=== PATIENT | male | born 2000 | race Caucasian/White ===

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

== ENCOUNTER 2019-02-07 17:32 | Emergency (ER) | payer OTHER ==
[~2019-02-07] VITALS: Ht 185.4 cm; Wt 68.0 kg
[~2019-02-07 17:32] MED LIST changes: +ALLEGRA-D 24 H1 EACH PO; +FLONASE ALLERG9.9 ML NAS; +PROAIR HFA8.5 GM INH
== END 2019-02-07 19:21 | disposition home or self-care (01) ==
LOC: ED 17:32
DX: S61.411A Laceration without foreign body of right hand, initial encounter (principal); S60.00XA Contusion of unspecified finger without damage to nail, initial encounter; W22.8XXA Striking against or struck by other objects, initial encounter; Y93.89 Activity, other specified; Y92.89 Other specified places as the place of occurrence of the external cause; Y99.8 Other external cause status

== ENCOUNTER 2019-02-26 16:10 | Emergency (ER) | payer OTHER ==
[~2019-02-26] VITALS: Ht 185.4 cm; Wt 63.5 kg
[2019-02-26] MEDS ORDERED: LAMICTAL25 MG PO (16:24)
[2019-02-26] MEDS ORDERED: PROZAC20 MG PO (16:24)
== END 2019-02-26 17:40 ==
LOC: ED 16:10
DX: J02.9 Acute pharyngitis, unspecified (principal); F17.200 Nicotine dependence, unspecified, uncomplicated; Z79.899 Other long term (current) drug therapy

== ENCOUNTER 2019-03-11 15:59 | Emergency (ER) | payer OTHER ==
[~2019-03-11] VITALS: Ht 185.4 cm; Wt 63.5 kg
[~2019-03-11 15:59] MED LIST changes: +LAMICTAL25 MG PO; +PROZAC20 MG PO
[2019-03-11 17:01] LABS: BASO % 0.1 % (0.0-1.0); EOS % 0.2 % (1.0-4.0); HEMOGLOBIN 14.7 g/dl (14.0-18.0); LYMPH # 1.5 10*3/uL (1.3-4.4); LYMPH % 10.9 % (27.0-41.0); MEAN CORPUSCULAR HGB 30.1 pg (27.0-31.0); MEAN CORPUSCULAR HGB CONC 33.4 g/dl (33.0-37.0); MEAN PLATELET VOLUME 10.7 fl (9.6-12.3); MONO # 0.9 10*3/uL (0.1-1.0); MONO % 6.7 % (3.0-9.0); NEUT # 11.5 10*3/uL (2.3-7.9); NEUT % 81.5 % (47.0-73.0); PLATELET COUNT AUTOMATED 197 10*3/uL (130-400); RED BLOOD COUNT 4.89 10*6/uL (4.50-5.90); RED CELL DISTRI WIDTH 13.5 % (0-14.5); WHITE BLOOD COUNT 14.1 10*3/uL (4.8-10.8)
[2019-03-11 17:19] LABS: ALBUMIN 4.2 gm/dl (3.1-4.5); ALKALINE PHOSPHATASE 88 U/L (45-117); BUN 7 mg/dl (7-24); CHLORIDE 105 mmol/L (98-107); CREATININE 0.85 mg/dL (0.70-1.30); POTASSIUM 3.9 mmol/L (3.5-5.1); SGOT/AST 26 IU/L (3-35); SGPT/ALT 25 U/L (12-78); SODIUM 137 mmol/L (136-145); TOTAL PROTEIN 7.5 gm/dL (6.4-8.2)
== END 2019-03-11 17:15 | disposition left against medical advice (07) ==
LOC: ED 15:59
PROVIDERS: Nurse Practitioner Family
DX: G43.909 Migraine, unspecified, not intractable, without status migrainosus (principal); R11.2 Nausea with vomiting, unspecified; F17.200 Nicotine dependence, unspecified, uncomplicated; Z79.899 Other long term (current) drug therapy